=== PATIENT | female | born 1995 | race Asian ===

== ENCOUNTER 2024-08-01 05:05 | Inpatient (IN) | payer OTHER ==
[2024-08-01] MEDS: ELECTROLYTE-148 SOLN 500 ML IV SCH (05:45)
[2024-08-01 05:46] VITALS: BMI 29.0
[2024-08-01] MEDS: ELECTROLYTE-148 SOLN 1,000 ML IV SCH (06:15)
[2024-08-01 06:19] LABS: INR 0.89 (0.83-1.09); PROTHROMBIN TIME (PATIENT) 9.7 SEC (9.7-13.0)
[2024-08-01 06:22] LABS: ACTIVATED PTT 25.5 SECONDS (25.2-36.5)
[2024-08-01 06:34] LABS: POTASSIUM 3.9 mmol/L (3.5-5.1)
[2024-08-01 06:35] LABS: CALCIUM 8.9 mg/dL (8.5-10.1)
[2024-08-01 06:36] LABS: BLOOD UREA NITROGEN 10.9 mg/dL (7-18)
[2024-08-01 06:39] LABS: CREATININE 0.5 mg/dL (0.55-1.3)
[2024-08-01 07:17] LABS: ABSOLUTE IMMATURE GRANULOCYTES 0.17 x10^3/uL (0.0-0.031); BASOPHILS # 0.02 x10^3/uL (0.01-0.08); EOSINOPHILS # 0.07 x10^3/uL (0.04-0.36); HEMATOCRIT 37.6 % (34.1-44.9); HEMOGLOBIN 12.7 g/dL (11.2-15.7); MCHC 33.8 g/dl (32.2-35.5); MEAN CELL VOLUME 94.9 fl (79.4-94.8); MEAN PLT VOLUME 10.1 fl (9.4-12.3); MONOCYTE # 0.65 x10^3/uL (0.24-0.86); MONOCYTE % 8.9 % (4.7-12.5); PLATELET COUNT 169 x10^3/uL (182-369); RDW 12.5 % (12.1-16.5)
[2024-08-01] MEDS: CITRIC ACID/SODIUM CITRATE 30 ML UNIT-DOSE CUP PO ONE (07:45)
[2024-08-01] MEDS ORDERED: morphine SULFATE/PF 1 MG/2 ML (2cc Syringe - QUVA) ONE (07:54)
[2024-08-01] MEDS ORDERED: FENTANYL CITRATE/PF 50 MCG/ML VIAL ONE (07:55)
[2024-08-01] MEDS ORDERED: ONDANSETRON 4 MG/2 ML VIAL ONE (08:16)
[2024-08-01] MEDS ORDERED: ceFAZolin SODIUM 1 GM VIAL ONE (08:21)
[2024-08-01] MEDS ORDERED: OXYTOCIN 10 UNITS/ML VIAL ONE (08:35)
[2024-08-01] MEDS ORDERED: METHYLERGONOVINE MALEATE 0.2 MG/1 ML AMP IM PRN (09:15)
[2024-08-01 09:26] LABS: CORD BASE EXCESS 0.4 mmol/L (0-2); CORD HCO3 27.2 mmHg (20-29); CORD PCO2 52.1 mmHg (30-78); CORD pH 7.336 (7.14-7.44)
[2024-08-01 09:30] LABS: CORD HCO3 31.7 mmHg (20-29); CORD PCO2 72.4 mmHg (30-78); CORD pH 7.259 (7.14-7.44)
[2024-08-01] MEDS ORDERED: OXYTOCIN 20 UNITS in 0.9% NS 20 UNIT/1,000 ML INFUS.BAG IV ONE (09:49)
[2024-08-01] MEDS: OXYTOCIN 20 UNITS in 0.9% NS 20 UNIT/1,000 ML INFUS.BAG IV SCH (09:50)
[2024-08-01] MEDS ORDERED: ENOXAPARIN NA (PORCINE) 40 MG/0.4 ML DISP.SYRIN SQ SCH (10:00)
[2024-08-01] MEDS ORDERED: ACETAMINOPHEN INJECTION 100 ML ONE (11:00)
[2024-08-01] MEDS: ACETAMINOPHEN 1000 MG/100 ML BAG IVPB ONE (11:05)
[2024-08-01 13:52] LABS: HIV INTERPRETATION NEGATIVE (NEGATIVE)
[2024-08-01 14:25] VITALS: RESP 18
[2024-08-01] MEDS: CEFAZOLIN SODIUM 2 GM in DEXTROSE 5%-WATER 100 ML IVPB SCH (16:30)
[2024-08-01] MEDS ORDERED: oxyCODONE HCL 5 MG TABLET PO PRN (21:15)
[2024-08-02] MEDS: IBUPROFEN 800 MG/8 ML IJ IVPB PRN (00:49)
[2024-08-02 07:53] LABS: BASOPHILS # 0.03 x10^3/uL (0.01-0.08); EOSINOPHIL % 0.4 % (0.7-5.8); EOSINOPHILS # 0.04 x10^3/uL (0.04-0.36); HEMATOCRIT 33.7 % (34.1-44.9); HEMOGLOBIN 11.1 g/dL (11.2-15.7); MCHC 32.9 g/dl (32.2-35.5); MEAN CELL VOLUME 95.7 fl (79.4-94.8); MEAN PLT VOLUME 9.8 fl (9.4-12.3); MONOCYTE # 0.64 x10^3/uL (0.24-0.86); MONOCYTE % 6.6 % (4.7-12.5); PLATELET COUNT 148 x10^3/uL (182-369); RDW 12.8 % (12.1-16.5)
[2024-08-02] MEDS: ENOXAPARIN NA (PORCINE) 40 MG/0.4 ML DISP.SYRIN SQ SCH (09:06)
[2024-08-02] MEDS: ACETAMINOPHEN 325 MG TABLET (FP) PO PRN (09:06)
[2024-08-02] MEDS ORDERED: BISACODYL 10 MG SUPP.RECT RC PRN (09:15)
[2024-08-02] MEDS: IBUPROFEN 600 MG TABLET (FP) PO PRN (12:25)
[2024-08-02] MEDS: oxyCODONE HCL 5 MG TABLET PO PRN (15:42)
[2024-08-02] MEDS: SIMETHICONE 80 MG TAB.CHEW (FP) PO PRN (15:42)
[2024-08-03] MEDS: DOCUSATE SODIUM 100 MG CAPSULE (FP) PO SCH (13:19)
[2024-08-03 22:14] VITALS: TEMP 98.4
[2024-08-04 08:32] LABS: ABSOLUTE IMMATURE GRANULOCYTES 0.03 x10^3/uL (0.0-0.031); BASOPHILS # 0.02 x10^3/uL (0.01-0.08); EOSINOPHIL % 2.2 % (0.7-5.8); EOSINOPHILS # 0.14 x10^3/uL (0.04-0.36); HEMATOCRIT 33.7 % (34.1-44.9); HEMOGLOBIN 11.2 g/dL (11.2-15.7); MCHC 33.2 g/dl (32.2-35.5); MEAN CELL VOLUME 96.3 fl (79.4-94.8); MEAN PLT VOLUME 9.8 fl (9.4-12.3); MONOCYTE # 0.46 x10^3/uL (0.24-0.86); MONOCYTE % 7.1 % (4.7-12.5); PLATELET COUNT 182 x10^3/uL (182-369); RDW 12.4 % (12.1-16.5)
[2024-08-04 10:28] VITALS: BP 100/76; PULSE 72
== END 2024-08-04 12:15 | disposition home or self-care (01) | DRG 371 ==
LOC: JLDR 05:05 → J3W 11:35
PROVIDERS: ADMIT Obstetrics & Gynecology; ATTEND Obstetrics & Gynecology
PROC: 10D00Z1 Extraction of Products of Conception, Low, Open Approach (ICD-10-PCS; principal; 2024-08-01)
DX: O34.211 Maternal care for low transverse scar from previous cesarean delivery (principal); N85.8 Other specified noninflammatory disorders of uterus; Z3A.39 39 weeks gestation of pregnancy; Z37.0 Single live birth
CPT/HCPCS: 36415; 36600; 59409; 80048; 82803; 85025; 85610; 85730; 86780; 86850; 86900; 86901; 87389; 88307-TC; 94010